=== PATIENT | male | born 1955 | race Caucasian/White ===

== ENCOUNTER 2017-01-28 00:10 | Emergency (ER) | payer BC ==
[~2017-01-28] VITALS: Ht 175.3 cm; Wt 72.6 kg
--- NOTE | 2017-01-28 00:10 | NUR ---
PT PRESENTED TO THE ER WITH A C/O N/V WITH ABD PAIN. PT IS PALE AND DIAPHORETIC. PT TAKEN TO ROOM #5. PT WAS PLACED ON THE MONITOR AND CONTINUOUS PULSE OX.
--- NOTE | 2017-01-28 00:20 | NUR ---
PT LEFT FOR CT VIA GURNEY.
[2017-01-28] MEDS ORDERED: MORPHINE SULFATE INJ 4 MG/ML DISP.SYRIN ONE (00:26)
[2017-01-28] MEDS ORDERED: IV SET PRIMARY 1 EA INFUS.SET MC ONE (00:26)
[2017-01-28] MEDS ORDERED: ONDANSETRON HCL/PF 4 MG/2 ML VIAL ONE (00:26)
[2017-01-28] MEDS ORDERED: IV NS 0.9% 1,000 ML ONE (00:26)
[2017-01-28 00:28] LABS: BASOPHILS # (AUTO) 0.1 /CMM (0.0-0.2); BASOPHILS % (AUTO) 0.7 % (0.0-2.0); EOSINOPHILS # (AUTO) 0.2 /CMM (0.0-0.7); EOSINOPHILS % (AUTO) 2.5 % (0.0-6.0); HEMATOCRIT 40 % (39-51); HEMOGLOBIN 13.8 g/dL (13.5-17.5); LYMPHOCYTES # (AUTO) 1.9 /CMM (0.8-4.8); MEAN CORPUSCULAR HEMOGLOBIN 30 PG (26.0-33.0); MEAN CORPUSCULAR HGB CONC 35 g/dl (31.0-36.0); MEAN CORPUSCULAR VOLUME 86 fL (80-96); MONOCYTES # (AUTO) 0.7 /CMM (0.1-1.30); MONOCYTES % (AUTO) 7.9 % (2.0-12.0); NEUTROPHILS % (AUTO) 67.9 % (43.0-81.0); PLATELET COUNT (AUTO) 227 /CMM (150-450); RDW COEFFICIENT OF VARIATION 12.6 (11.5-15.0); RED BLOOD CELL COUNT(AUTO) 4.62 MIL/uL (4.5-6.0); WHITE BLOOD COUNT (AUTO) 8.9 K/uL (4.3-11.0)
[2017-01-28] MEDS ORDERED: ONDANSETRON HCL/PF 4 MG/2 ML VIAL IVP ONE (00:30)
[2017-01-28] MEDS ORDERED: MORPHINE SULFATE INJ 2 MG/ML DISP.SYRIN IV ONE (00:30)
[2017-01-28] MEDS ORDERED: IV NS 0.9% 1,000 ML BAG IV ONE (00:30)
[2017-01-28 00:39] LABS: CALCIUM, SERUM 8.1 mg/dL (8.5-10.1); CARBON DIOXIDE 29 mmol/L (21-32); CHLORIDE 104 mmol/L (98-107); CREATININE 1.6 mg/dL (0.6-1.3); GFR 44 mL/min (>60); GLUCOSE 141 mg/dL (74-106); POTASSIUM 3.4 mmol/L (3.5-5.1); SODIUM SERUM 140 mmol/L (136-145); UREA NITROGEN, BLOOD 23 mg/dL (7-18)
[2017-01-28 00:42] LABS: INR 1.02 (0.87-1.13); PROTHROMBIN TIME 10.9 SECS (9.5-12.7)
[2017-01-28 00:45] LABS: ALANINE AMINOTRANSFERASE 20 U/L (12-78); ALBUMIN 3.2 g/dL (3.4-5.0); ALKALINE PHOSPHATASE 75 U/L (46-116); ASPARTATE AMINOTRANSFERASE 15 U/L (15-37); BILIRUBIN,DIRECT 0.1 mg/dL (0.0-0.2); BILIRUBIN,TOTAL 0.4 mg/dL (0.2-1.0); LIPASE 274 U/L (73-393); TOTAL PROTEIN, SERUM 7.1 g/dL (6.4-8.2)
--- NOTE | 2017-01-28 00:46 | NUR ---
PT RETURNED FROM CT.
[2017-01-28 00:47] LABS: TROPONIN I < 0.017 ng/mL (0.00-0.056)
--- NOTE | 2017-01-28 01:09 | NUR ---
PT AMBULATED TO THE BATHROOM WITH A STEADY GAIT. PT TO GIVE A URINE SAMPLE.
--- NOTE | 2017-01-28 01:17 | NUR ---
PT WAS RECONNECTED TO THE MONITOR AND CONTINUOUS PULSE OX. PT REC'D 2 WARM BLANKETS.
[2017-01-28 01:39] LABS: APPEARANCE,URINE CLEAR (CLEAR); BILIRUBIN,URINE NEGATIVE (NEGATIVE); BLOOD, URINE 3+ Ery/uL (NEGATIVE); COLOR,URINE YELLOW (YELLOW); KETONES,URINE NEGATIVE (NEGATIVE); LEUKOCYTE ESTERASE ,URINE 1+ (NEGATIVE); NITRITE, URINE NEGATIVE (NEGATIVE); PROTEIN,URINE NEGATIVE (NEGATIVE); UGLUCOSE NEGATIVE (NEGATIVE); UROBILINOGEN,URINE 0.2 EU/dL (0.2)
[2017-01-28 01:49] LABS: ADD URINE CULTURE YES; BACTERIA,URINE None seen /HPF (None Seen); MUCUS,URINE Few /LPF (None Seen); SQUAMOUS EPITHELIAL CELL,UR Few /HPF (None Seen)
[2017-01-28 02:07] VITALS: BP 137/81
--- NOTE | 2017-01-28 02:08 | NUR ---
IV removed. Catheter intact and site benign. Pressure and 4x4 applied to site. No bleeding noted.Patient discharged to home in stable condition. Written and verbal after care instructions given. Patient verbalizes understanding of instruction AND RX. PT REC'D A STRAINER AND STERILE CUP. PT AMBULATED OUT WITH A STEADY GAIT. VSS. NAD NOTED.
== END 2017-01-28 02:06 | disposition home or self-care (01) ==
LOC: ER 00:12
DX: N20.0 Calculus of kidney (principal); N39.0 Urinary tract infection, site not specified
CPT/HCPCS: 36415; 74176; 80048; 80076; 81001; 83690; 84484; 85025; 85730; 93005; 96361; 96374; 96375; 99285; A4606; J2270; J2405; J7030; Z7610; 81000-TC

== ENCOUNTER 2019-06-15 08:19 | Emergency (ER) | payer BC ==
[~2019-06-15] VITALS: Ht 172.7 cm; Wt 70.3 kg
--- NOTE | 2019-06-15 08:29 | NUR ---
PATIENT CAME TO ER W/ DUE TO FLANK PAIN. PATIENT HAS HX OF KIDNEY STONES. PT CURRENTLY NOT IN PAIN. PT STATES THAT LAST NIGHT AT AROUND 1-2AM THAT HE HAD TROUBLE SLEEPING DUE TO PAIN. PATIENT IS IN BED 5 CONNECTED TO MONITOR. NAD NOTED, NO SOB. VITAL SIGNS STABLE. AWAITING MD FOR FUTHER EVAL. WILL CONTINUE TO MONITOR FOR SAFETY.
--- NOTE | 2019-06-15 08:31 | NUR ---
TO ER 5, UA OBTAINED
[2019-06-15 09:06] LABS: APPEARANCE,URINE Clear (CLEAR); BILIRUBIN,URINE Negative (NEGATIVE); BLOOD, URINE Small Ery/uL (NEGATIVE); COLOR,URINE Yellow (YELLOW); KETONES,URINE 15 (NEGATIVE); LEUKOCYTE ESTERASE ,URINE Negative (NEGATIVE); NITRITE, URINE Negative (NEGATIVE); PH,URINE 5.5 (5.0-8.0); PROTEIN,URINE Negative (NEGATIVE); UGLUCOSE Negative (NEGATIVE); UROBILINOGEN,URINE 0.2 EU/dL (0.2)
[2019-06-15 09:15] LABS: BACTERIA,URINE Rare /HPF (None Seen); RBC,URINE 0-2 /HPF (0-2); SQUAMOUS EPITHELIAL CELL,UR Rare /HPF (None Seen); WBC,URINE 0-2 /HPF (0-3)
--- NOTE | 2019-06-15 10:14 | NUR ---
PATIENT'S STONE PASSED DURING URINATION AND SENT TO LAB FOR ANALYSIS.
[2019-06-15 10:15] VITALS: BP 142/91
--- NOTE | 2019-06-15 10:15 | NUR ---
Patient discharged to home in stable condition. Written and verbal after care instructions given. Patient verbalizes understanding of instruction.
== END 2019-06-15 10:16 | disposition home or self-care (01) ==
LOC: ER 08:19
DX: N20.0 Calculus of kidney (principal)
CPT/HCPCS: 81000-TC

== ENCOUNTER 2019-08-05 08:25 | Inpatient (IN) | payer BC ==
[~2019-08-05] VITALS: Ht 172.7 cm; Wt 72.1 kg
--- NOTE | 2019-08-05 08:45 | NUR ---
PRESSURE LIKE CHEST PAIN/SOB STARTED FEW HOURS AGO." WAS AT [facility] 2 WEEKS AGO FOR SAME SYMPTOMS. PATIENT A/OX4, BREATHING EVEN AND UNLABORED, NO SOB NOTED, ATTACHED TO THE RADIO REPAIRER DOMESTIC. NO DISTRESS NOTED
[2019-08-05 08:57] LABS: BASOPHILS # (AUTO) 0.1 /CMM (0.0-0.2); BASOPHILS % (AUTO) 1.1 % (0.0-2.0); EOSINOPHILS % (AUTO) 1.3 % (0.0-6.0); HEMATOCRIT 47 % (39-51); HEMOGLOBIN 16.2 g/dL (13.5-17.5); LYMPHOCYTES # (AUTO) 1.5 /CMM (0.8-4.8); LYMPHOCYTES % (AUTO) 33.1 % (20.0-44.0); MEAN CORPUSCULAR HGB CONC 35 g/dl (31.0-36.0); MEAN CORPUSCULAR VOLUME 88 fL (80-96); MONOCYTES # (AUTO) 0.3 /CMM (0.1-1.30); MONOCYTES % (AUTO) 6.7 % (2.0-12.0); NEUTROPHILS # (AUTO) 2.7 /CMM (1.8-8.9); NEUTROPHILS % (AUTO) 57.8 % (43.0-81.0); PLATELET COUNT (AUTO) 159 /CMM (150-450); RED BLOOD CELL COUNT(AUTO) 5.31 MIL/uL (4.5-6.0); WHITE BLOOD COUNT (AUTO) 4.7 K/uL (4.3-11.0)
[2019-08-05 09:05] LABS: CALCIUM, SERUM 8.9 mg/dL (8.5-10.1); CARBON DIOXIDE 33 mmol/L (21-32); CHLORIDE 107 mmol/L (98-107); CREATININE 1.2 mg/dL (0.6-1.3); GLUCOSE 66 mg/dL (74-106); POTASSIUM 3.9 mmol/L (3.5-5.1); SODIUM SERUM 141 mmol/L (136-145); UREA NITROGEN, BLOOD 20 mg/dL (7-18)
[2019-08-05 09:17] LABS: ALANINE AMINOTRANSFERASE 22 U/L (12-78); ALBUMIN 3.6 g/dL (3.4-5.0); ALKALINE PHOSPHATASE 54 U/L (46-116); ASPARTATE AMINOTRANSFERASE 16 U/L (15-37); B-TYPE NATRIURETIC PEPTIDE 26 PG/ML (0-125); BILIRUBIN,DIRECT 0.1 mg/dL (0.0-0.2); BILIRUBIN,TOTAL 0.8 mg/dL (0.2-1.0); TOTAL PROTEIN, SERUM 6.9 g/dL (6.4-8.2)
[2019-08-05] MEDS ORDERED: OMEP40CA13 PO (09:27)
[2019-08-05] MEDS ORDERED: TAMS-12 PO (09:27)
[2019-08-05] MEDS ORDERED: NITROGLYCERIN 0.4 MG/TAB BOTTLE ONE ×2 (09:41→12:22)
--- NOTE | 2019-08-05 09:48 | NUR ---
pt brought in from home for c/c of chest pain no nausea or vomiting nor diaphoresis pt currently on monitor hr 85 nsr. pt c/o chest pain given ntg sl. will continue to onitor.
[2019-08-05] MEDS ORDERED: ASPIRIN 325 MG TABLET PO ONE (10:00)
[2019-08-05] MEDS ORDERED: NITROGLYCERIN 0.4 MG/TAB BOTTLE SL ONE (10:00)
[2019-08-05] MEDS ORDERED: ASPIRIN 325 MG TABLET ONE (10:02)
[2019-08-05] MEDS ORDERED: IOHEXOL-350 100 ML VIAL IV ONE ×2 (10:10→11:53)
[2019-08-05] MEDS ORDERED: CT SWABBABLE VALVE TRANS SET 1 EA INFUS.SET MC ONE (10:10)
[2019-08-05] MEDS ORDERED: IV NS 0.9% 250 ML IV ONE (10:10)
[2019-08-05] MEDS ORDERED: IV NS 0.9% 1,000 ML IV PRN (11:12)
[2019-08-05] MEDS ORDERED: TEMAZEPAM 15 MG CAPSULE PO PRN (11:30)
[2019-08-05] MEDS ORDERED: MORPHINE SULFATE INJ 2 MG/ML DISP.SYRIN IV PRN (11:30)
[2019-08-05] MEDS ORDERED: NITROGLYCERIN 0.4 MG/TAB BOTTLE SL PRN (11:30)
[2019-08-05] MEDS ORDERED: ONDANSETRON HCL/PF 4 MG/2 ML VIAL IVP PRN (11:30)
[2019-08-05] MEDS ORDERED: IV NS 0.9% 1,000 ML IV ONE (11:30)
[2019-08-05] MEDS ORDERED: HYDROCODONE/APAP 5/325MG 1 EACH TABLET PO PRN (11:30)
[2019-08-05] MEDS ORDERED: ACETAMINOPHEN 325 MG TABLET PO PRN (11:30)
--- NOTE | 2019-08-05 11:50 | NUR ---
IR called pt to have cta
--- NOTE | 2019-08-05 11:50 | NUR ---
report given to katalina benoit.
[2019-08-05] MEDS ORDERED: NITROGLYCERIN 4.9 GM SPRAY SL PRN (12:00)
[2019-08-05] MEDS ORDERED: IV NS 0.9% 500 ML IV PRN (12:00)
[2019-08-05] MEDS ORDERED: METOPROLOL TARTRATE INJ 5 MG/5 ML AMPUL IVP ONE (12:00)
[2019-08-05] MEDS ORDERED: METOPROLOL TARTRATE INJ 5 MG/5 ML AMPUL ONE (12:24)
--- NOTE | 2019-08-05 12:36 | NUR ---
CTA heart completed, VSS , denies CP or SOB; BP 129/70 HR 62 SPO2 98% room air; report given to ROBERTO Navarro, transferred back via [facility]
--- NOTE | 2019-08-05 19:40 | NUR ---
DITCH INSPECTOR NOTE: PATIENT RESTING IN BED. BREATHING EVEN AND UNLABORED, NO SOB NOTED. IV TO RAC IN PLACE. DENIES CHEST PAIN AT THIS TIME. BED LOCKED AND IN LOWEST POSITION, CALL LIGHT IN REACH, WILL CONTINUE TO MONITOR.
[2019-08-05 23:48] VITALS: BP 132/78
[2019-08-06 00:25] VITALS: BP 112/72
--- NOTE | 2019-08-06 03:00 | NUR ---
COST AND RISK ANALYSIS MANAGER NOTE: PATIENT SLEEPING IN BED. BREATHING EVEN AND UNLABORED, NO SOB NOTED. IV TO RAC IN PLACE. BED LOCKED AND IN LOWEST POSITION, CALL LIGHT IN REACH, WILL CONTINUE TO MONITOR.
[2019-08-06 04:07] VITALS: BP 120/71
--- NOTE | 2019-08-06 06:10 | NUR ---
EXPERIMENTAL OUTBOARD MOTORS MECHANIC NOTE: PATIENT RESTING IN BED. BREATHING EVEN AND UNLABORED, NO SOB NOTED. IV TO RAC IN PLACE. TELE READING 70'S DENIES CHEST PAIN AT THIS TIME. BED LOCKED AND IN LOWEST POSITION, CALL LIGHT IN REACH, WILL ENDORSE TO DAY NURSE TO CONTINUE WITH PLAN OF CARE.
[2019-08-06 06:43] LABS: BASOPHILS % (AUTO) 0.4 % (0.0-2.0); EOSINOPHILS % (AUTO) 2.7 % (0.0-6.0); HEMATOCRIT 41 % (39-51); HEMOGLOBIN 14.6 g/dL (13.5-17.5); LYMPHOCYTES # (AUTO) 1.8 /CMM (0.8-4.8); LYMPHOCYTES % (AUTO) 28.5 % (20.0-44.0); MEAN CORPUSCULAR HGB CONC 35 g/dl (31.0-36.0); MEAN CORPUSCULAR VOLUME 87 fL (80-96); MONOCYTES # (AUTO) 0.5 /CMM (0.1-1.30); MONOCYTES % (AUTO) 7.9 % (2.0-12.0); NEUTROPHILS # (AUTO) 3.8 /CMM (1.8-8.9); NEUTROPHILS % (AUTO) 60.5 % (43.0-81.0); PLATELET COUNT (AUTO) 146 /CMM (150-450); RED BLOOD CELL COUNT(AUTO) 4.75 MIL/uL (4.5-6.0); WHITE BLOOD COUNT (AUTO) 6.2 K/uL (4.3-11.0)
--- NOTE | 2019-08-06 07:00 | NUR ---
RN OPENING NOTES PATIENT RESTING IN BED. A/OX4, ABLE TO MAKE NEEDS KNOWN. NOT IN ANY FORM OF DISTRESS. BREATHING EVEN AND UNLABORED, NO SOB NOTED. DENIES CHEST PAIN AT THIS TIME. IV ACCESS INTACT AND PATENT. NEEDS ATTENDED. SAFETY MEASURES IN PLACE. BED LOCKED AND IN LOWEST POSITION, SIDERAILS UPX2. CALL LIGHT IN REACH, WILL CONTINUE TO MONITOR ACCORDINGLY.
[2019-08-06 07:09] LABS: CALCIUM, SERUM 8.1 mg/dL (8.5-10.1); MAGNESIUM 2.1 mg/dL (1.8-2.4); PHOSPHORUS 3.3 mg/dL (2.5-4.9); POTASSIUM 3.7 mmol/L (3.5-5.1)
[2019-08-06 07:10] LABS: THYROID STIMULATING HORMONE 3.107 uIU/mL (0.358-3.74)
[2019-08-06] MEDS ORDERED: PANTOPRAZOLE 40 MG TABLET.DR PO SCH (07:30)
[2019-08-06 08:00] VITALS: BP 116/65
[2019-08-06] MEDS ORDERED: ASPIRIN 81 MG TAB.CHEW PO SCH (09:00)
--- NOTE | 2019-08-06 13:18 | NUR ---
discharged patient in stable condition picked up by , accompanied to the lobby by EMBEDDED SOFTWARE DESIGN ENGINEER. Discharged instructions and educational resources materials provided, verbalized understanding. All belongings returned. All forms signed. iv access removed, tip intact. Removed nameband.
== END 2019-08-06 13:15 | disposition home or self-care (01) | DRG 206 ==
LOC: ER 08:25 → TELE 11:36 → MED 08-06 10:18
PROVIDERS: ADMIT Nurse Practitioner Acute Care; ATTEND Nurse Practitioner Acute Care
DX: M94.0 Chondrocostal junction syndrome [Tietze] (principal); Z87.442 Personal history of urinary calculi; N28.1 Cyst of kidney, acquired; N40.0 Benign prostatic hyperplasia without lower urinary tract symptoms; R79.89 Other specified abnormal findings of blood chemistry; R91.8 Other nonspecific abnormal finding of lung field
CPT/HCPCS: 36415; 71045-TC; 75574; 80048-TC; 80061-TC; 80076-TC; 83735-TC; 83880; 84100-TC; 84443-TC; 84484-TC; 85025-TC; 87081-TC; 93307-TC; G0378; J3490; J7030; J7050; Q9967

== ENCOUNTER 2020-01-09 08:33 | Emergency (ER) | payer BC ==
[~2020-01-09] VITALS: Ht 175.3 cm; Wt 66.7 kg
[~2020-01-09 08:33] MED LIST: OMEP40CA13 PO; TAMS-12 PO
[2020-01-09 09:18] LABS: BASOPHILS # (AUTO) 0.1 /CMM (0.0-0.2); BASOPHILS % (AUTO) 1.3 % (0.0-2.0); EOSINOPHILS % (AUTO) 1.4 % (0.0-6.0); HEMATOCRIT 44 % (39-51); HEMOGLOBIN 15.5 g/dL (13.5-17.5); LYMPHOCYTES # (AUTO) 1.3 /CMM (0.8-4.8); LYMPHOCYTES % (AUTO) 30.6 % (20.0-44.0); MEAN CORPUSCULAR HGB CONC 35 g/dl (31.0-36.0); MEAN CORPUSCULAR VOLUME 87 fL (80-96); MONOCYTES # (AUTO) 0.3 /CMM (0.1-1.30); MONOCYTES % (AUTO) 7.3 % (2.0-12.0); NEUTROPHILS # (AUTO) 2.6 /CMM (1.8-8.9); NEUTROPHILS % (AUTO) 59.4 % (43.0-81.0); PLATELET COUNT (AUTO) 157 /CMM (150-450); RED BLOOD CELL COUNT(AUTO) 5.06 MIL/uL (4.5-6.0); WHITE BLOOD COUNT (AUTO) 4.3 K/uL (4.3-11.0)
[2020-01-09 09:22] LABS: CALCIUM, SERUM 8.8 mg/dL (8.5-10.1); CARBON DIOXIDE 31 mmol/L (21-32); CHLORIDE 104 mmol/L (98-107); CREATININE 1.3 mg/dL (0.6-1.3); GLUCOSE 101 mg/dL (74-106); POTASSIUM 3.9 mmol/L (3.5-5.1); SODIUM SERUM 141 mmol/L (136-145); UREA NITROGEN, BLOOD 17 mg/dL (7-18)
[2020-01-09 09:28] LABS: ALANINE AMINOTRANSFERASE 24 U/L (12-78); ALBUMIN 3.7 g/dL (3.4-5.0); ALKALINE PHOSPHATASE 51 U/L (46-116); ASPARTATE AMINOTRANSFERASE 15 U/L (15-37); BILIRUBIN,DIRECT 0.2 mg/dL (0.0-0.2); LIPASE 237 U/L (73-393); TOTAL PROTEIN, SERUM 6.9 g/dL (6.4-8.2)
[2020-01-09] MEDS ORDERED: IOHEXOL-300 100 ML VIAL IV ONE (09:42)
[2020-01-09] MEDS ORDERED: IV NS 0.9% 250 ML IV ONE (09:42)
[2020-01-09] MEDS ORDERED: CT SWABBABLE VALVE TRANS SET 1 EA INFUS.SET MC ONE (09:42)
[2020-01-09 11:07] VITALS: BP 140/98
--- NOTE | 2020-01-09 11:07 | NUR ---
PT. VERBALIZED UNDERSTANDING OF AFTERCARE INSTRUCTIONS.Patient discharged to home in stable condition. Written and verbal after care instructions given. Patient verbalizes understanding of instruction.
--- NOTE | 2020-01-09 11:07 | NUR ---
IV removed. Catheter intact and site benign. Pressure and 4x4 applied to site. No bleeding noted.
== END 2020-01-09 11:08 | disposition home or self-care (01) ==
LOC: ER 08:34
DX: R14.0 Abdominal distension (gaseous) (principal); K21.9 Gastro-esophageal reflux disease without esophagitis; N40.0 Benign prostatic hyperplasia without lower urinary tract symptoms; Z87.442 Personal history of urinary calculi; Z79.899 Other long term (current) drug therapy
CPT/HCPCS: 71260; 74177; 80048; 80076; 83690; 84484; 85025; 93005; 99285; J7050; Q9967

== ENCOUNTER 2020-04-06 08:33 | Emergency (ER) | payer BC ==
[~2020-04-06] VITALS: Ht 175.3 cm; Wt 65.8 kg
[2020-04-06] MEDS ORDERED: MAGN400T8 PO (08:40)
[2020-04-06] MEDS ORDERED: TRAM50TA2 PO (08:40)
--- NOTE | 2020-04-06 08:42 | NUR ---
Came in for abdominal pain (epigastric area), radiates to his left side of the body - worst last night; 8/ in severity; recent weight loss -from 153 to 145 lbs, to ER bed 8, hooked to monitor, changed to hosp gown, warm blanket provided, patient aao x 4, breathing even and unlabored. Dr Mares at bedside for eval
[2020-04-06] MEDS ORDERED: IV NS 0.9% 1,000 ML BAG IV ONE (09:00)
[2020-04-06] MEDS ORDERED: MAG HYDROX/AL HYDROX/SIMETH 30 ML UDC PO ONE (09:00)
[2020-04-06] MEDS ORDERED: PANTOPRAZOLE 40 MG VIAL IV ONE (09:00)
[2020-04-06] MEDS ORDERED: KETOROLAC TROMETHAMINE INJ 30 MG/ML VIAL IV ONE (09:00)
[2020-04-06] MEDS ORDERED: LIDOCAINE VISCOUS 2% UD 15 ML UDC MM ONE (09:00)
[2020-04-06] MEDS ORDERED: KETOROLAC TROMETHAMINE INJ 30 MG/ML VIAL ONE (09:08)
[2020-04-06] MEDS ORDERED: MAG HYDROX/AL HYDROX/SIMETH 30 ML UDC ONE (09:08)
[2020-04-06] MEDS ORDERED: PANTOPRAZOLE 40 MG VIAL ONE (09:08)
[2020-04-06] MEDS ORDERED: LIDOCAINE VISCOUS 2% UD 15 ML UDC ONE (09:08)
[2020-04-06 09:27] LABS: BASOPHILS % (AUTO) 0.9 % (0.0-2.0); EOSINOPHILS % (AUTO) 2.5 % (0.0-6.0); HEMATOCRIT 44 % (39-51); HEMOGLOBIN 15.6 g/dL (13.5-17.5); LYMPHOCYTES # (AUTO) 1.6 /CMM (0.8-4.8); LYMPHOCYTES % (AUTO) 37.1 % (20.0-44.0); MEAN CORPUSCULAR HGB CONC 35 g/dl (31.0-36.0); MEAN CORPUSCULAR VOLUME 88 fL (80-96); MONOCYTES # (AUTO) 0.3 /CMM (0.1-1.30); MONOCYTES % (AUTO) 7.5 % (2.0-12.0); NEUTROPHILS # (AUTO) 2.2 /CMM (1.8-8.9); PLATELET COUNT (AUTO) 138 /CMM (150-450); RED BLOOD CELL COUNT(AUTO) 5.06 MIL/uL (4.5-6.0); WHITE BLOOD COUNT (AUTO) 4.2 K/uL (4.3-11.0)
[2020-04-06 09:39] LABS: CALCIUM, SERUM 8.3 mg/dL (8.5-10.1); CREATININE 1.2 mg/dL (0.6-1.3); POTASSIUM 3.7 mmol/L (3.5-5.1)
[2020-04-06 09:45] LABS: ALBUMIN 3.6 g/dL (3.4-5.0); BILIRUBIN,DIRECT 0.2 mg/dL (0.0-0.2); TOTAL PROTEIN, SERUM 6.5 g/dL (6.4-8.2)
--- NOTE | 2020-04-06 10:49 | NUR ---
URINE SAMPLE COLLECTED AND SENT TO LAB
[2020-04-06 11:01] LABS: BILIRUBIN,URINE Negative (NEGATIVE); BLOOD, URINE Moderate Ery/uL (NEGATIVE); COLOR,URINE Yellow (YELLOW); KETONES,URINE Negative (NEGATIVE); LEUKOCYTE ESTERASE ,URINE Negative (NEGATIVE); NITRITE, URINE Negative (NEGATIVE); PROTEIN,URINE Negative (NEGATIVE); UGLUCOSE Negative (NEGATIVE); UROBILINOGEN,URINE 0.2 EU/dL (0.2)
[2020-04-06 11:10] LABS: APPEARANCE,URINE SLIGHTLY CLOUDY (CLEAR)
[2020-04-06 11:18] LABS: BACTERIA,URINE Rare /HPF (None Seen); RBC,URINE 20-25 /HPF (0-2); SQUAMOUS EPITHELIAL CELL,UR Few /HPF (None Seen)
[2020-04-06 11:23] VITALS: BP 135/77
--- NOTE | 2020-04-06 11:23 | NUR ---
Patient discharged to home in stable condition. Written and verbal after care instructions given. Patient verbalizes understanding of instruction.IV removed. Catheter intact and site benign. Pressure and 4x4 applied to site. No bleeding noted.
== END 2020-04-06 11:24 | disposition home or self-care (01) ==
LOC: ER 08:33
DX: N20.0 Calculus of kidney (principal); K21.9 Gastro-esophageal reflux disease without esophagitis; N40.0 Benign prostatic hyperplasia without lower urinary tract symptoms; Z79.899 Other long term (current) drug therapy
CPT/HCPCS: 36415; 71045; 74176; 76870; 80048; 80076; 81001; 83690; 85025; 96374; 96375; 99285; C9113; J1885; J7030; 81000-TC

== ENCOUNTER 2020-06-18 00:05 | Emergency (ER) | payer BC ==
[~2020-06-18] VITALS: Ht 175.3 cm; Wt 68.0 kg
[~2020-06-18 00:05] MED LIST changes: +MAGN400T8 PO; +TRAM50TA2 PO
--- NOTE | 2020-06-18 00:12 | NUR ---
PT AAOX4. BIBSELF, AMBULATORY WITH STEADY GAIT. C/O R FLANK PAIN SINCE 8AM. PT PALCED IN BED 16 ON MONITOR AND PULSE OX.
--- NOTE | 2020-06-18 00:15 | NUR ---
PT PROVIDED URINE SAMPLE. LINE INTIIATED LAC 18G, BLOOD DRAWN AND SENT TO LAB. SPOKE TO PT REGARDING PLAN OF CARE.
[2020-06-18] MEDS ORDERED: ONDANSETRON HCL/PF 4 MG/2 ML VIAL ONE (00:23)
[2020-06-18] MEDS ORDERED: MORPHINE SULFATE INJ 4 MG/ML DISP.SYRIN ONE (00:23)
[2020-06-18 00:27] LABS: APPEARANCE,URINE CLEAR (CLEAR); BILIRUBIN,URINE NEGATIVE (NEGATIVE); BLOOD, URINE LARGE Ery/uL (NEGATIVE); COLOR,URINE YELLOW (YELLOW); KETONES,URINE NEGATIVE (NEGATIVE); LEUKOCYTE ESTERASE ,URINE NEGATIVE (NEGATIVE); NITRITE, URINE NEGATIVE (NEGATIVE); PROTEIN,URINE TRACE mg/dl (NEGATIVE); UGLUCOSE NEGATIVE (NEGATIVE); UROBILINOGEN,URINE 0.2 EU/dL (0.2)
[2020-06-18 00:29] LABS: BASOPHILS # (AUTO) 0.2 /CMM (0.0-0.2); BASOPHILS % (AUTO) 1.4 % (0.0-2.0); EOSINOPHILS % (AUTO) 1.3 % (0.0-6.0); HEMATOCRIT 45 % (39-51); HEMOGLOBIN 15.3 g/dL (13.5-17.5); LYMPHOCYTES # (AUTO) 1.2 /CMM (0.8-4.8); LYMPHOCYTES % (AUTO) 10.7 % (20.0-44.0); MEAN CORPUSCULAR HGB CONC 34 g/dl (31.0-36.0); MEAN CORPUSCULAR VOLUME 89 fL (80-96); MONOCYTES # (AUTO) 0.5 /CMM (0.1-1.30); MONOCYTES % (AUTO) 4.9 % (2.0-12.0); NEUTROPHILS % (AUTO) 81.7 % (43.0-81.0); PLATELET COUNT (AUTO) 148 /CMM (150-450); RED BLOOD CELL COUNT(AUTO) 5.04 MIL/uL (4.5-6.0)
[2020-06-18] MEDS: IV NS 0.9% 1,000 ML BAG IV ONE (00:30)
[2020-06-18] MEDS: MORPHINE SULFATE INJ 2 MG/ML DISP.SYRIN IV ONE (00:30)
[2020-06-18] MEDS: ONDANSETRON HCL/PF 4 MG/2 ML VIAL IVP ONE (00:30)
[2020-06-18 00:47] LABS: CALCIUM, SERUM 8.6 mg/dL (8.5-10.1); CREATININE 1.4 mg/dL (0.6-1.3); POTASSIUM 3.6 mmol/L (3.5-5.1)
[2020-06-18] MEDS ORDERED: CT SWABBABLE VALVE TRANS SET 1 EA INFUS.SET MC ONE (00:48)
[2020-06-18] MEDS ORDERED: IV NS 0.9% 250 ML IV ONE (00:48)
[2020-06-18] MEDS ORDERED: IOHEXOL-300 100 ML VIAL IV ONE (00:48)
--- NOTE | 2020-06-18 01:00 | NUR ---
PT BROUGHT TO CT
[2020-06-18 01:11] LABS: BACTERIA,URINE Few /HPF (None Seen); RBC,URINE TOO NUMEROUS TO COUN /HPF (0-2); SQUAMOUS EPITHELIAL CELL,UR Rare /HPF (None Seen)
--- NOTE | 2020-06-18 01:20 | NUR ---
PT RETURNED FROM RADIOLOGY.
--- NOTE | 2020-06-18 01:23 | NUR ---
PT REMAINS IN PAIN, MD AWARE. AWAITING ORDERS.
[2020-06-18] MEDS ORDERED: KETOROLAC TROMETHAMINE 15 MG/ML VIAL ONE (01:25)
[2020-06-18] MEDS: KETOROLAC TROMETHAMINE INJ 30 MG/ML VIAL IV ONE (01:29)
--- NOTE | 2020-06-18 02:04 | NUR ---
PT DENIES PAIN. VSS.
--- NOTE | 2020-06-18 02:12 | NUR ---
Patient discharged to home in stable condition. Written and verbal after care instructions given. Patient verbalizes understanding of instruction and rx. Pt provided with CT scan results. Pt denies pain.
[2020-06-18 02:13] VITALS: BP 137/81
== END 2020-06-18 02:52 | disposition home or self-care (01) ==
LOC: ER 00:07
DX: N20.0 Calculus of kidney (principal); K21.9 Gastro-esophageal reflux disease without esophagitis; N40.0 Benign prostatic hyperplasia without lower urinary tract symptoms; Z79.899 Other long term (current) drug therapy
CPT/HCPCS: 36415; 74177; 80048; 81001; 85025; 96361; 96374; 96375; 99285; J1885; J2270; J2405; J7030; J7050; Q9967; 81000-TC

== ENCOUNTER 2023-10-01 06:25 | Emergency (ER) | payer BC, MEDICARE ==
[~2023-10-01] VITALS: Ht 175.3 cm; Wt 70.3 kg
[~2023-10-01 06:25] MED LIST changes: +AMLO5TAB4 PO; +AZIT1PAC PO; +AZIT250T PO; +AZIT500T PO; +CEPH500C2 PO; +ESOM40CA PO; +GUAI118S13 PO; -OMEP40CA13 PO; +OMEP40CA21 PO; +ZOLP10TA2 PO
[2023-10-01] MEDS ORDERED: KETOROLAC TROMETHAMINE 15 MG/ML VIAL IV ONE ×2 (06:30→08:00)
[2023-10-01] MEDS ORDERED: IV NS 0.9% 1,000 ML BAG IV ONE (06:30)
[2023-10-01] MEDS ORDERED: KETOROLAC TROMETHAMINE 15 MG/ML VIAL ONE ×2 (06:35→08:02)
[2023-10-01 07:01] LABS: BASOPHILS % (AUTO) 0.1 % (0.0-2.0); EOSINOPHILS % (AUTO) 0.1 % (0.0-6.0); HEMATOCRIT 42 % (39-51); HEMOGLOBIN 14.8 g/dL (13.5-17.5); LYMPHOCYTES % (AUTO) 10.6 % (20.0-44.0); MEAN CORPUSCULAR HEMOGLOBIN 30 PG (26.0-33.0); MEAN CORPUSCULAR HGB CONC 35 g/dl (31.0-36.0); MEAN CORPUSCULAR VOLUME 86 fL (80-96); MONOCYTES # (AUTO) 0.4 K/uL (0.1-1.30); MONOCYTES % (AUTO) 3.9 % (2.0-12.0); NEUTROPHILS # (AUTO) 8.2 K/uL (1.8-8.9); NEUTROPHILS % (AUTO) 85.3 % (43.0-81.0); PLATELET COUNT (AUTO) 138 K/uL (150-450); RED BLOOD CELL COUNT(AUTO) 4.91 MIL/uL (4.5-6.0); RED CELL DISTRIBUTION WIDTH 14.2 % (11.5-15.0); WHITE BLOOD COUNT (AUTO) 9.6 K/uL (4.3-11.0)
[2023-10-01 07:32] LABS: INR 1.05 (0.91-1.10); PARTIAL THROMBOPLASTIN TIME 25.2 SEC (24.3-34.3); PROTHROMBIN TIME 11.1 SECS (9.2-11.1)
[2023-10-01 07:57] LABS: APPEARANCE,URINE CLEAR (CLEAR); BILIRUBIN,URINE NEGATIVE (NEGATIVE); BLOOD, URINE TRACE-INTA Ery/uL (NEGATIVE); COLOR,URINE YELLOW (YELLOW); KETONES,URINE 2+ mg/dL (NEGATIVE); LEUKOCYTE ESTERASE ,URINE NEGATIVE (NEGATIVE); NITRITE, URINE NEGATIVE (NEGATIVE); PROTEIN,URINE NEGATIVE (NEGATIVE); UGLUCOSE NEGATIVE (NEGATIVE); UROBILINOGEN,URINE 0.2 EU/dL (0.2)
[2023-10-01 08:14] LABS: ALBUMIN 3.6 g/dL (3.4-5.0); BILIRUBIN,DIRECT 0.1 mg/dL (0.0-0.2); BILIRUBIN,TOTAL 0.8 mg/dL (0.2-1.0); CALCIUM, SERUM 9.1 mg/dL (8.5-10.1); CREATININE 1.4 mg/dL (0.6-1.3); POTASSIUM 3.5 mmol/L (3.5-5.1); TOTAL PROTEIN, SERUM 7.2 g/dL (6.4-8.2)
[2023-10-01] MEDS ORDERED: ONDA4TAB11 PO (08:47)
[2023-10-01] MEDS ORDERED: IBUP-1957 PO (08:47)
[2023-10-01] MEDS ORDERED: HYDR-4303 PO (08:47)
[2023-10-01 09:09] VITALS: BP 134/80; TEMP 97.1; O2SAT 99
[2023-10-01 09:48] LABS: ADD URINE CULTURE NO; BACTERIA,URINE None seen /HPF (None Seen); RBC,URINE 0-2 /HPF (0-2); SQUAMOUS EPITHELIAL CELL,UR None Seen /HPF (None Seen); WBC,URINE NONE SEEN /HPF (0-3)
== END 2023-10-01 09:27 | disposition home or self-care (01) ==
LOC: ER 06:28
DX: N13.2 Hydronephrosis with renal and ureteral calculous obstruction (principal); K21.9 Gastro-esophageal reflux disease without esophagitis; Z87.442 Personal history of urinary calculi; Z79.899 Other long term (current) drug therapy
CPT/HCPCS: 99285; 74176; 96374; 96361; 96376; 85025; 80048; 83690; 80076; 81001; 36415; 85730; J7030; J1885 ×2

== ENCOUNTER 2024-12-22 07:43 | Emergency (ER) | payer MEDICARE, OTHER ==
[~2024-12-22] VITALS: Ht 175.3 cm; Wt 70.3 kg
[~2024-12-22 07:43] MED LIST changes: +ALPR1TAB2 PO; +HYDR-4303 PO; +IBUP-1957 PO; +ONDA4TAB11 PO; +PROM118S5 PO
[2024-12-22] MEDS ORDERED: KETOROLAC TROMETHAMINE INJ 30 MG/ML VIAL ONE (08:00)
[2024-12-22] MEDS ORDERED: ONDANSETRON HCL/PF 4 MG/2 ML VIAL ONE (08:00)
[2024-12-22 08:16] LABS: BASOPHILS % (AUTO) 0.5 % (0.0-2.0); EOSINOPHILS # (AUTO) 0.1 K/uL (0.0-0.7); EOSINOPHILS % (AUTO) 1.8 % (0.0-6.0); HEMATOCRIT 46 % (39-51); HEMOGLOBIN 16.1 g/dL (13.5-17.5); LYMPHOCYTES # (AUTO) 1.9 K/uL (0.8-4.8); LYMPHOCYTES % (AUTO) 27.2 % (20.0-44.0); MEAN CORPUSCULAR HEMOGLOBIN 31 PG (26.0-33.0); MEAN CORPUSCULAR HGB CONC 35 g/dl (31.0-36.0); MEAN CORPUSCULAR VOLUME 88 fL (80-96); MONOCYTES # (AUTO) 0.5 K/uL (0.1-1.30); MONOCYTES % (AUTO) 7.7 % (2.0-12.0); NEUTROPHILS # (AUTO) 4.5 K/uL (1.8-8.9); NEUTROPHILS % (AUTO) 62.8 % (43.0-81.0); PLATELET COUNT (AUTO) 174 K/uL (150-450); RED BLOOD CELL COUNT(AUTO) 5.24 MIL/uL (4.5-6.0); RED CELL DISTRIBUTION WIDTH 13.9 % (11.5-15.0); WHITE BLOOD COUNT (AUTO) 7.2 K/uL (4.3-11.0)
[2024-12-22 08:22] LABS: CREATININE 1.4 mg/dL (0.6-1.3); POTASSIUM 3.8 mmol/L (3.5-5.1)
[2024-12-22 08:28] LABS: BILIRUBIN,DIRECT 0.2 mg/dL (0.0-0.2); BILIRUBIN,TOTAL 1.1 mg/dL (0.2-1.0); TOTAL PROTEIN, SERUM 7.3 g/dL (6.4-8.2)
[2024-12-22] MEDS: ONDANSETRON HCL/PF 4 MG/2 ML VIAL IVP ONE (08:30)
[2024-12-22] MEDS: KETOROLAC TROMETHAMINE 15 MG/ML VIAL IV ONE (08:33)
[2024-12-22 08:42] LABS: APPEARANCE,URINE CLEAR (CLEAR); BILIRUBIN,URINE NEGATIVE (NEGATIVE); BLOOD, URINE TRACE-INTA Ery/uL (NEGATIVE); COLOR,URINE YELLOW (YELLOW); KETONES,URINE NEGATIVE (NEGATIVE); LEUKOCYTE ESTERASE ,URINE NEGATIVE (NEGATIVE); NITRITE, URINE NEGATIVE (NEGATIVE); PH,URINE 5.5 (5.0-8.0); PROTEIN,URINE NEGATIVE (NEGATIVE); UGLUCOSE NEGATIVE (NEGATIVE); UROBILINOGEN,URINE 0.2 EU/dL (0.2)
[2024-12-22 09:02] LABS: ADD URINE CULTURE NO; BACTERIA,URINE Few /HPF (None Seen); RBC,URINE 0-2 /HPF (0-2); SQUAMOUS EPITHELIAL CELL,UR 0-2 /HPF (None Seen); WBC,URINE 0-2 /HPF (0-3)
[2024-12-22] MEDS ORDERED: HYDR-3972 PO (09:32)
[2024-12-22 10:20] VITALS: BP 139/77; TEMP 97.8; O2SAT 98
== END 2024-12-22 10:26 | disposition home or self-care (01) ==
LOC: ER 07:49
DX: N20.2 Calculus of kidney with calculus of ureter (principal); R11.0 Nausea; N40.0 Benign prostatic hyperplasia without lower urinary tract symptoms; Z79.899 Other long term (current) drug therapy
CPT/HCPCS: 99285; 74176; 96374; 96375; 93005; 85025; 80048; 83690; 80076; 81001; 36415; J1885; J2405; J7030